=== PATIENT | female | born 1975 | race Caucasian/White ===

== ENCOUNTER → 2020-01-06 14:31 | Outpatient (BNVA) | payer BC, SELFPAY | PROVIDERS: Family Provider Family Medicine; PCP Family Medicine; Visit Provider Obstetrics & Gynecology | DX: Z30.9 Encounter for contraceptive management, unspecified (principal); N93.9 Abnormal uterine and vaginal bleeding, unspecified | CPT/HCPCS: 81025 ==

== ENCOUNTER → 2020-04-17 09:32 | Outpatient (BNVA) | payer BC, SELFPAY | PROVIDERS: Family Provider Family Medicine; PCP Family Medicine; Visit Provider Family Medicine | DX: I10 Essential (primary) hypertension (principal); E66.9 Obesity, unspecified | CPT/HCPCS: 80053; 80061; 82043; 82306; 85025 ==

== ENCOUNTER → 2020-04-22 09:30 | Outpatient (BNVA) | payer BC, SELFPAY | PROVIDERS: Family Provider Family Medicine; PCP Family Medicine; Visit Provider Family Medicine | DX: R73.09 Other abnormal glucose (principal); R74.8 Abnormal levels of other serum enzymes; I10 Essential (primary) hypertension; E66.9 Obesity, unspecified | CPT/HCPCS: 80074; 83036 ==

== ENCOUNTER → 2020-05-20 15:33 | Outpatient (BNVA) | payer BC, SELFPAY | PROVIDERS: Family Provider Family Medicine; PCP Family Medicine; Visit Provider Family Medicine | DX: R59.0 Localized enlarged lymph nodes (principal) | CPT/HCPCS: 85007; 85027; 86618; 86666; 86757 ==

== ENCOUNTER → 2020-05-21 17:13 | Outpatient (BNVA) | payer BC, SELFPAY | PROVIDERS: Family Provider Family Medicine; PCP Family Medicine; Visit Provider Family Medicine | DX: R59.0 Localized enlarged lymph nodes (principal) | CPT/HCPCS: 80500 ==

== ENCOUNTER 2020-06-01 14:35 | Outpatient (CLI) | payer BC, SELFPAY ==
--- NOTE | 2020-06-01 15:15 | US_ITS ---
WS: [id number] US soft tissue head neck [id number] REASON FOR EXAM: left cervical adenopathy FINDINGS: In the region of the palpable abnormality, ultrasonographic examination revealed a complex mass havin g both solid and cystic complements. There were markedly thickened septations in the cystic areas. Th e mass measured 1.98 x 1.58 x 2.10 cm. US/US soft tissue head neck [id number] IMPRESSION: The palpable mass in the left neck is a complex abnormality that is not typical for isolated adenopathy. Possibly this is a complex tumor in the left parotid gland. A CT scan of the neck with contrast is recommended making certain to sta rt just above the base of the skull superiorly.
== END 2020-06-01 14:36 | disposition home or self-care (01) ==
LOC: US 14:38
PROVIDERS: PCP Family Medicine; Visit Provider Family Medicine
DX: R59.0 Localized enlarged lymph nodes (principal)
CPT/HCPCS: 76536

== ENCOUNTER 2020-06-03 07:50 | Outpatient (CLI) | payer BC, SELFPAY ==
--- NOTE | 2020-06-03 08:03 | CT_ITS ---
WS: [id number] CT NECK WITH CONTRAST HISTORY: Abnormal ultrasound. Complex mass. TECHNIQUE: Contiguous 5 mm axial images are performed through the neck with intravenous contrast. Sag ittal and coronal reformats are also submitted. All CT scans at [facility] use at least o ne of these dose optimization techniques: automated exposure control; mA and/or kV adjustment per pat ient size (includes targeted exams where dose is matched to clinical indication); or iterative recons truction. CONTRAST: CONTRAST: Omnipaque 300; 95 mL IV. DLP: 2437.21 mGycm COMPARISON: Ultrasound 06/01/2020. Nasopharynx, oropharynx, hypopharynx and larynx are unremarkable. No soft tissue masses or abnormal e nhancement. Torus tubarius and fossa of Rosenmuller and parapharyngeal fat are normal. Cervical chain lymphadenopathy is identified. Enlarged lymph nodes at level IIa and IIb measuring up to 10 mm in short axis diameter. Level Va lymph node measures 9 mm. There is an additional lymph node measuring 10 mm lateral to the sternocleidomastoid muscle on the LEFT. Well-circumscribed hypervascular mass in the inferior LEFT parotid measures 15 x 11 mm. There are adj acent smaller enhancing nodes which may be lymph nodes in the LEFT parotid gland. Adjacent to the kiran y superior superficial LEFT parotid is a 6 mm enhancing enhancing nodule which may be within the paro tid gland or extraparotid lymph node. RIGHT parotid gland is normal. Negative thyroid. No osseous abnormalities. Visualized portions of the skull base demonstrate no abnormalities. Orbits and globes are within norm al limits. No soft tissue masses. Visualized paranasal sinuses and mastoid air cells are normal. Lung apices are clear. CT/CT neck w con* [id number] IMPRESSION: 1. LEFT parotid gland dominant mass measures 15 x 11 mm. Adjacent small intrap arotid masses may be lymph nodes. Suspicious for malignancy. 2. Cervical chain lymphadenopathy as described above. 3. Neoplastic disease with extension to the lymph nodes these to be excluded. Recommend consultation with ENT and possible fine-needle aspiration of the LEFT parotid gland dominant mass or removal of an abnormal lymph node.
[2020-06-03] MEDS: iohexol 300 mg/mL 100 mL Btl IV (08:30)
== END 2020-06-03 07:51 | disposition home or self-care (01) ==
LOC: RADWPI 07:52
PROVIDERS: PCP Family Medicine; Visit Provider Family Medicine
DX: R93.89 Abnormal findings on diagnostic imaging of other specified body structures (principal); D37.030 Neoplasm of uncertain behavior of the parotid salivary glands; R59.0 Localized enlarged lymph nodes
CPT/HCPCS: 70491; Q9967

== ENCOUNTER → 2020-06-08 09:17 | Outpatient (BNVA) | payer BC, SELFPAY | PROVIDERS: PCP Family Medicine; Visit Provider Family Medicine | DX: R74.8 Abnormal levels of other serum enzymes (principal) | CPT/HCPCS: 80053 ==

== ENCOUNTER → 2020-06-26 09:59 | Outpatient (BNVA) | payer BC, SELFPAY | PROVIDERS: PCP Family Medicine; Visit Provider Specialist | DX: Z20.828 Contact with and (suspected) exposure to other viral communicable diseases (principal) | CPT/HCPCS: 87635 ==

== ENCOUNTER 2020-06-30 13:52 | Observation (INO) | payer BC, SELFPAY ==
[2020-06-29 10:30] VITALS: BMI 33.9
[2020-06-30] VITALS (11 sets, daily range): BP systolic 140–171; BP diastolic 75–112; PULSE 81–108; RESP 15–19; TEMP 37.1–37.2; O2SAT 95–100
[2020-06-30 07:46] LABS: OR HCG Qualitative Urine Negative (Negative)
[2020-06-30] MEDS: sodium chloride 0.9% 1,000 ML 30 ML IV (07:54)
--- NOTE | 2020-06-30 08:12 | P.ANESASSM_ITS ---
Pre-Anesthetic Assessment Pre-Anesthetic Assessment: Height/Weight: Height 1.68 m Weight 95.254 kg Temp Pulse Resp BP Pulse Ox 98.7 F 81 16 158/112 96 06/30/20 07:41 06/30/20 07:41 06/30/20 07:41 06/30/20 07:41 06/30/20 07:41 Preop Diagnosis: lymphadenopathy Proposed Procedure: Operation Date: 06/30/20 07:00 Proposed Procedures p Parotidectomy(Left) - Perez Fulton MD Familial anesthetic complications: None Was Beta Soni taken within 24 hours: N/A Last intake: Intake Last Liquid Date 06/30/20 Last Liquid Time 04:30 Last Solid Date 06/29/20 Last Solid Time 19:00 Social: Social History: No alcohol and No tobacco Exam: Pre-Anes Outpt Exam: alert, oriented x 3, clear to auscultation bilaterally and regular rate & rhythm Airway: Cervical ROM: WNL MP: 2 Dentition: Full CV/HEM: CV/HEM: HTN GI: GI: GERD Metabolic: Metabolic: Hyperlipidemia and Morbid obesity Anesthetic Plan: ASA status: 2 Anesthesia: General Risk of > 500 ml blood loss (7ml/kg in children): No Meds/Allergies Current Medications: Current Medications Generic Name Dose Route Start Last Admin Trade Name Freq PRN Reason Stop Dose Admin Sodium Chloride 1,000 mls @ 30 ml s/hr 06/30/20 07:30 06/30/20 07:54 Sodium Chloride 0.9% IV 07/01/20 07:29 30 mls/hr .Q24H DAMARIS Administration PFSH Anesthesia PFSH: Medical History (Updated 05/20/20 @ 15:19 by Ana Lilia Pal DO) Chronic migraine Controlled on sumatriptan when necessary. Denies Aura. This is managed by her primary care provider Dr. López Hypertension No pertinent past medical history Patient denies history of PE/DVT/clotting disorders, asthma, lung, liver heart, thyroid, kidney disease, or diabetes. PCP: Dr. López Surgical History S/P section Performed in 2007. Status post hysteroscopy 05/23/2019-- hysteroscopy, dilation and curettage performed for abnormal uterine [place] [facility] [place] Pathology showed disordered proliferation and secretory menstrual fragments. On hysteroscopy no lesions submucosal fibroids or polyps identified within the endocervical and endometrial cavity. 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 Data Anesthesia Other Labs: Laboratory Results - last 48 hr 06/30/20 07:33 Urine HCG, Qual Negative Cardiac Studies: No Data to Display
--- NOTE | 2020-06-30 08:34 | ANES.PREANE2 ---
Pre-Anesthetic Assessment Pre-Anesthetic Assessment: Height/Weight: Height 1.68 m Weight 95.254 kg Temp Pulse Resp BP Pulse Ox 98.7 F 81 16 158/112 96 06/30/20 07:41 06/30/20 07:41 06/30/20 07:41 06/30/20 07:41 06/30/20 07:41 Preop Diagnosis: lymphadenopathy Proposed Procedure: Operation Date: 06/30/20 07:00 Proposed Procedures p Parotidectomy(Left) - Perez Fulton MD Last intake: Intake Last Liquid Date 06/30/20 Last Liquid Time 04:30 Last Solid Date 06/29/20 Last Solid Time 19:00 Meds/Allergies Current Medications: Current Medications Generic Name Dose Route Start Last Admin Trade Name Freq PRN Reason Stop Dose Admin Sodium Chloride 1,000 mls @ 30 ml s/hr 06/30/20 07:30 06/30/20 07:54 Sodium Chloride 0.9% IV 07/01/20 07:29 30 mls/hr .Q24H DAMARIS Administration PFSH Anesthesia PFSH: Medical History (Updated 05/20/20 @ 15:19 by Ana Lilia Pal DO) Chronic migraine Controlled on sumatriptan when necessary. Denies Aura. This is managed by her primary care provider Dr. López Hypertension No pertinent past medical history Patient denies history of PE/DVT/clotting disorders, asthma, lung, liver heart, thyroid, kidney disease, or diabetes. PCP: Dr. López Surgical History S/P section Performed in 2007. Status post hysteroscopy 05/23/2019-- hysteroscopy, dilation and curettage performed for abnormal uterine bleeding by Dr. Reddy at [facility] [place]. Pathology showed disordered proliferation and secretory menstrual fragments. On hysteroscopy no lesions submucosal fibroids or polyps identified within the endocervical and endometrial cavity. 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 Data Anesthesia Other Labs: Laboratory Results - last 48 hr 06/30/20 07:33 Urine HCG, Qual Negative Cardiac Studies: No Data to Display
--- NOTE | 2020-06-30 09:01 | W.PM.OPSUD ---
Surgery/Procedure H&P Update DATE OF PROCEDURE: June 30, 2020 DATE H&P PERFORMED: 06/19/20 H&P UPDATE INFORMATION: I have reviewed H&P completed within last 30 days, I have examined patient prior to procedure and No changes to prior documentation PREOP DIAGNOSIS: Left Parotid Mass PRIMARY INDICATION FOR PROCEDURE: Left Parotid Mass PLANNED PROCEDURE: Operation Date: 06/30/20 07:00 Proposed Procedures p Parotidectomy(Left) - Perez Fulton MD
[2020-06-30] MEDS: ceFAZolin 1,000 mg SDV 1000 MG IRRIGATION ×2 (10:09→14:40)
[2020-06-30] MEDS: EPINEPHrine 1 mg/mL INJ 2 MG XX ×2 (10:10→11:08)
[2020-06-30] MEDS: fluorescein 1 mg Strip 2 MG XX (10:15)
[2020-06-30] MEDS: thrombin 5,000 unit SDV 5000 UNIT XX ×2 (12:22→14:40)
--- NOTE | 2020-06-30 12:27 | SUR.OPER ---
Family Notified Of Patient's Status Via Phone.
[2020-06-30] MEDS: neomycin-poly-bacitracin oint 28 gm 1 APPLIC TOPICAL (13:07)
--- NOTE | 2020-06-30 14:09 | PC.NURSE ---
Spoke with patient's Rodney and gave update that she had swelling and we were re-opening to look for bleeding.
--- NOTE | 2020-06-30 15:18 | P.OP_ITS ---
Operative Report Date of procedure: June 30, 2020 Pre-op Diagnosis: Left Parotid Mass Post-op diagnosis: same Post-op Findings: Left tail of paroitd mass with benign frozen section analysis Procedure Done: Left superficial parotidectomy Left abdominal fat graft harvest Implants: None Specimens removed/disposition: Left superficial parotid gland/mass Pathology: other Pathology: Left superficial parotid/tail of parotid mass Surgeon: Perez Fulton Yeast Fermentation Attendant: Demian Fitzpatrick Anesthesia: General Estimated blood loss (mL): 25 IV fluids (mL): 2,300 Complications: Wound hemorrhange/hematoma at the end of the procedure Findings: Left tail of parotid mass/normal left facial nerve Condition: stable Disposition: ICU Brief History: The patient is a 44 yo wf with a h/o a left tail of parotid mass who desires surgical therapy. Procedure: The patient was identified in the preoperative holding area and was taken to the operating room where she was placed on the operating table in the supine position. Anesthesia was obtained with general endotracheal anesthesia and the table was turned 180 degrees. The Nirvana nerve monitoring system was placed on the patient's left face and a modified Eddie incision was marked out on patient's left face. The wound was injected with local anesthesia and the patient was then prepped and draped in the usual sterile fashion. The incision was made with a 15 blade and was carried down into the subcutaneous tissues using sharp scissors. An anteriorly based skin flap was raised exposing the left parotid fascia and then the dissection proceeded along a broad front from the upper sternocleidomastoid to the preauricular tissues. Using the Nirvana nerve monitoring hemostat the dissection proceeded at its deepest point in the preauricular portion of the wound exposing the tympanomastoid suture line. The dissection proceeded into the tympanomastoid suture line until the facial nerve trunk was identified. The dissection then proceeded anteriorly with the Thompson dissector until the pes anserinus was identified. At this point the facial nerve branches were dissected individually superiorly and inferiorly while dividing the parotid tissue with bipolar cautery until the tail of parotid was removed while protecting the marginal, buccal, temporal, and zygomatic branches of the facial nerve. The left tail of parotid specimen was removed and sent for frozen section analysis. This came back as negative for malignancy. At this point a left abdominal fat graft was harvested with a 15 blade and sharp scissors from the left lower quadrant of the abdomen. Hemostasis was achieved with bipolar cautery and a Corinth drain was placed in the wound. The left lower quadrant abdominal wound was then closed with interrupted 4-0 Monocryl sutures subcu and 3-0 Prolene on the skin. The left lower quadrant wound was then covered with a sterile dressing. The wound was inspected and hemostasis was achieved with bipolar cautery. The fat graft thus harvested was then placed in the surgical defect of the left parotid and was sutured in place with interrupted 4-0 Monocryl sutures. A small FAUSTO drain was placed in the wound and the wound was then closed interrupted 4-0 Monocryl sutures subcu in running fashion 5-0 fast-absorbing gut on the skin. At this point the wound was cleaned and covered triple antibiotic ointment and the procedure was terminated. The patient was extubated and was placed on the gurney and she was noted to have significant swelling of the left face. At this point we elected to place her back on the operating table and put her to sleep the table was then turned 180 degrees and the patient was reprepped and draped in the usual sterile fashion. The left facial wound was then opened and the wound was irrigated with a copious amount of normal of warm saline. The bleeding was found to be near the trunk of the facial nerve from a parotid remnant just outside of the stylomastoid foramen. FloSeal was then used to stop this bleeding and then Gelfoam covered with thrombin was placed in the area as was a new drain. The fat graft was then replaced and sutured in place with 4-0 Monocryl sutures and the wounds were reclosed with 4-0 Monocryl sutures in the subcu and a running 5-0 Prolene on the skin. Once this was accomplished, the procedure was terminated and control of the patient was returned to anesthesia where she underwent an uneventful reversal of anesthesia and extubation and was taken to the recovery room stable condition. There were no operative or anesthetic complications.
[2020-06-30] MEDS: lactated ringers 1,000 ML 100 ML IV (16:33)
[2020-06-30] MEDS: famotidine 20 mg/2 mL INJ IVP (16:37)
[2020-06-30] MEDS: morphine 4 mg/mL SDV 1 mL 2 MG IVP ×2 (16:38→19:20)
[2020-06-30] MEDS: docusate sodium 100 mg Capsule PO (19:24)
[2020-07-01] VITALS (30 sets, daily range): BP systolic 105–147; BP diastolic 7–100; PULSE 70–99; RESP 12–26; TEMP 36.7–37.3; O2SAT 95–99
[2020-07-01] MEDS: morphine 4 mg/mL SDV 1 mL 2 MG IVP ×2 (00:05→05:19)
[2020-07-01] MEDS: lactated ringers 1,000 ML 100 ML IV ×2 (01:37→15:02)
--- NOTE | 2020-07-01 05:16 | P.PN_ITS ---
Subjective Subjective: Interval history: 44 yo wf who is POD #1 s/p left superficial parotidectomy with abdominal fat graft harvest who is doing well. The patient has had limited po intake, and is getting her pain control IV. The patient reports that her face is working, and she can feel her left ear. She is o/w without c/o. Vitals/I&O/Wt Last Vital Signs Temp 98.8 F 07/01/20 03:36 Pulse 78 07/01/20 03:36 Resp 22 H 07/01/20 03:36 BP 118/7 07/01/20 03:36 Pulse Ox 95 06/30/20 20:15 06/30/20 06/30/20 07/01/20 14:59 22:59 06:59 Intake Total 1050 / 1050 2460 / 3510 906.667 / 4416.667 Output Total 1297 / 1297 1010 / 2307 Balance 1050 / 1050 1163 / 2213 -103.333 / 2109.667 Weight last 48 hrs Weight 95.254 kg Physical Exam Const: COMMON NORMALS: patient oriented x3 HENMT: COMMON NORMALS: external ears normal and Normal external nose present NOSE: Normal external nose present EXTERNAL EAR: Yes external ears normal Eye: COMMON NORMALS: EOMs intact bilaterally and conjunctivae normal CONJUNCTIVA: Yes conjunctivae normal Neck/C-Spine: COMMON NORMALS: full ROM and no lymphadenopathy GENERAL: Yes other (The left facial/neck wound is intact and without erythema or swelling.) Lymph: LYMPHATIC: no lymphadenopathy noted Resp: COMMON NORMALS: normal respiratory effort and clear to auscultation bilaterally AUSCULTATION: clear to auscultation bilaterally Cardio: COMMON NORMALS: regular rate, regular rhythm and No murmurs present (Cardio) RATE: regular rate RHYTHM: regular rhythm GI: COMMON NORMALS: Normal to inspection, nondistended, normoactive bowel sounds present INSPECTION: Yes normal to inspection Extremity: COMMON NORMALS: normal to inspection Neuro: COMMON NORMALS: patient oriented x3 and CN's II-XII intact bilaterally Skin: COMMON NORMALS: no rashes or lesions noted GENERAL SKIN EXAM: no rashes or lesions noted Urinary Catheter Management^: Castano: Cath Placed During This Visit: yes Urinary Catheter Date of Insertion: 06/30/20 Urinary Catheter Time of Insertion: 09:20 A&P Additional A&P Information Impression: 44 yo wf who is POD #1 s/p left superficial parotidectomy doing well. Plan: I recommend that we change to po Ibuprofen and Percocet for pain control; we will observe today and discharge this afternoon if the patient is able to control her pain po; we will continue closed suction drainage. Attestations Medical Necessity Statement*: The patient required overnight observation of her airway. Coding Level of Care Code Acute Drafter Electrical for Tanvi Nava
[2020-07-01] MEDS: oxyCODONE-APAP 5-325 mg Tablet PO ×2 (05:32→12:21)
[2020-07-01] MEDS: famotidine 20 mg/2 mL INJ IVP ×2 (05:33→17:16)
[2020-07-01] MEDS: atorvastatin 40 mg Tablet 20 MG PO (08:52)
[2020-07-01] MEDS: sertraline 50 mg Tablet PO (08:52)
[2020-07-01] MEDS: hydroCHLOROthiazide 25 mg Tablet PO (08:53)
[2020-07-01] MEDS: doxycycline 100 mg Tablet PO (08:53)
[2020-07-01] MEDS: docusate sodium 100 mg Capsule PO (08:53)
[2020-07-01] MEDS: ibuprofen 200 mg Tablet 400 MG PO ×2 (08:54→15:04)
--- NOTE | 2020-07-01 09:17 | ANE.PACU2 ---
Inpatient post-anesthesia follow up: Airway intact: Yes Vital signs: Temperature 98.1 F Pulse Rate 77 Respiratory Rate 17 Blood Pressure 113/65 Pulse Oximetry 95 Oxygen Delivery Me thod Room Air Oxygen Flow Rate 8 Fraction of Inspir ed Oxygen Hydration adequate: Yes Nausea and vomiting: No Pain level: 3 Mental status: Baseline
[2020-07-01] MEDS: SUMAtriptan 25 mg Tablet 100 MG PO (17:16)
--- NOTE | 2020-07-01 17:16 | P.PN_ITS ---
Subjective Subjective: Interval history: 44 yo wf who is POD #1 s/p left superficial parotidectomy. The patient reports that she has a migraine INFANTE, and would like to go home. The patient has been able to take po, and was instructed in drain use. She is o/w without c/o. Vitals/I&O/Wt Last Vital Signs Temp 98.1 F 07/01/20 09:00 Pulse 73 07/01/20 14:30 Resp 12 07/01/20 14:30 BP 105/69 07/01/20 14:30 Pulse Ox 96 07/01/20 14:30 07/01/20 07/01/20 07/01/20 06:59 14:59 22:59 Intake Total 906.667 / 4416.667 1000 / 1000 Output Total 1010 / 2307 Balance -103.333 / 2109.667 1000 / 1000 Physical Exam Const: COMMON NORMALS: no acute distress and patient oriented x3 ORIENTATION/CONSCIOUSNESS: Yes oriented to person HENMT: COMMON NORMALS: normocephalic and Normal external nose present HEAD & SCALP: normocephalic FACE & SINUS: normal facial exam NOSE: Normal external nose present Eye: COMMON NORMALS: EOMs intact bilaterally and no scleral icterus Neck/C-Spine: COMMON NORMALS: no lymphadenopathy THYROID: other (The left neck wound is clean, intact, and without erythema.) Lymph: LYMPHATIC: no lymphadenopathy noted Chest: COMMONS NORMALS: normal inspection of the chest Resp: COMMON NORMALS: normal respiratory effort and clear to auscultation bilaterally AUSCULTATION: clear to auscultation bilaterally Cardio: COMMON NORMALS: regular rhythm and No murmurs present (Cardio) RHYTHM: regular rhythm GI: COMMON NORMALS: Normal to inspection, nondistended, normoactive bowel sounds present Extremity: COMMON NORMALS: normal to inspection Neuro: COMMON NORMALS: patient oriented x3 and CN's II-XII intact bilaterally SENSORIUM/ORIENTATION: Yes oriented to person Psych: COMMON NORMALS: mental status grossly normal Skin: COMMON NORMALS: turgor normal GENERAL SKIN EXAM: turgor normal Urinary Catheter Management^: Castano: Cath Placed During This Visit: yes Urinary Catheter Date of Insertion: 06/30/20 Urinary Catheter Time of Insertion: 09:20 A&P Additional A&P Information Impression: 44 yo wf with a h/o a left parotid mass who is POD #1 s/p left superficial parotidectomy who is doing well Plan: D/C to home; Percocet (5/325) tabs: take 1-2 tabs po [id number] prn pain, #25, NR; Doxycycline (100mg) tabs: take 1 tab po BID x 14 days, #28, NR; Sumatryptan (100mg tab): take one tab po QD prn INFANTE, #2 tabs, NR; the patient is to empty her FAUSTO drain daily and record output; VIOLA to wounds TID; the patient was instructed in wound care and drain care; the patient is to f/u in Dr. Fulton's office in 5 days - she is to contact me for any problems. Attestations Medical Necessity Statement*: The patient required overnight observation of her airway and for pain control. Coding Level of Care Code Acute Place Change Roof Bolter for Tanvi Nava
[2020-07-08 09:46] LABS: Miscellaneous Test See Scanned Lab Rpt
== END 2020-07-02 06:13 | disposition home or self-care (01) ==
LOC: MEDSURG 13:53 → ICU 15:04
PROVIDERS: Admitting Provider Specialist; PCP Family Medicine; Visit Provider Specialist
PROC: (CPT 42410; principal; 2020-06-30 07:00)
PROC: (CPT 42415; 2020-06-30 07:00)
DX: D11.0 Benign neoplasm of parotid gland (principal); I10 Essential (primary) hypertension
CPT/HCPCS: 42415; 12345; 81025; 84703; 88307; 94664; 96360; 96361; 96375; G0378; J0171; J0330; J0690; J1100; J2270; J2405; J2704; J3010; J3490; J7030

== ENCOUNTER → 2020-07-20 11:11 | Outpatient (BNVA) | payer BC, SELFPAY | PROVIDERS: PCP Family Medicine; Visit Provider Family Medicine | DX: E78.5 Hyperlipidemia, unspecified (principal) | CPT/HCPCS: 80061; 83721 ==

== ENCOUNTER → 2020-07-27 11:58 | Outpatient (BNVA) | payer BC, SELFPAY | PROVIDERS: PCP Family Medicine; Visit Provider Family Medicine | DX: K11.8 Other diseases of salivary glands (principal); I10 Essential (primary) hypertension | CPT/HCPCS: 71046; 86140 ==

== ENCOUNTER → 2021-01-04 08:31 | Outpatient (BNVA) | payer BC, SELFPAY | PROVIDERS: PCP Family Medicine; Visit Provider Family Medicine | DX: I10 Essential (primary) hypertension (principal); E78.5 Hyperlipidemia, unspecified; F41.1 Generalized anxiety disorder; G43.709 Chronic migraine without aura, not intractable, without status migrainosus; Z68.34 Body mass index [BMI] 34.0-34.9, adult | CPT/HCPCS: 80053; 81015; 82043; 85025 ==

== ENCOUNTER 2021-03-08 09:26 | Outpatient (CLI) | payer BC, SELFPAY ==
--- NOTE | 2021-03-08 09:30 | MM_ITS ---
WS: [id number] BILATERAL SCREENING DIGITAL MAMMOGRAM WITH CAD HISTORY: Screening. COMPARISON: 08/24/2017 Bilateral CC and MLO views submitted. Computer aided detection analyzed. Breast composition: The breasts are heterogeneously dense, which may obscure small masses. No suspici ous masses, microcalcifications or architectural distortion. Scattered asymmetries have become slight ly less dense as compared to the prior study. No new calcifications. No distortion. MM/[id number] IMPRESSION: BI-RADS: 2-Benign FOLLOW UP: 1 Year Follow-up
== END 2021-03-08 09:27 | disposition home or self-care (01) ==
LOC: RADSHAW 09:29
PROVIDERS: PCP Family Medicine; Visit Provider Obstetrics & Gynecology
DX: Z12.31 Encounter for screening mammogram for malignant neoplasm of breast (principal)
CPT/HCPCS: 77067

== ENCOUNTER → 2021-07-05 08:40 | Outpatient (BNVA) | payer BC, SELFPAY | PROVIDERS: PCP Family Medicine; Visit Provider Family Medicine | DX: I10 Essential (primary) hypertension (principal); F41.1 Generalized anxiety disorder; E78.5 Hyperlipidemia, unspecified; G43.709 Chronic migraine without aura, not intractable, without status migrainosus | CPT/HCPCS: 80053; 80061; 82043; 85025 ==

== ENCOUNTER → 2021-12-28 08:58 | Outpatient (BNVA) | payer BC, SELFPAY | PROVIDERS: PCP Family Medicine; Visit Provider Family Medicine | DX: E78.5 Hyperlipidemia, unspecified (principal); I10 Essential (primary) hypertension | CPT/HCPCS: 80053 ==

== ENCOUNTER → 2022-08-02 11:17 | Outpatient (BNVA) | payer BC, SELFPAY | PROVIDERS: PCP Family Medicine; Visit Provider Family Medicine | DX: I10 Essential (primary) hypertension (principal); E78.5 Hyperlipidemia, unspecified | CPT/HCPCS: 80053; 80061; 82043; 85025 ==

== ENCOUNTER 2022-12-05 14:43 | Outpatient (CLI) | payer BC, SELFPAY ==
[2022-12-05 15:55] LABS: Basophils # 0.1 10^3/uL (0.0-0.1); Basophils % 0.7 %; Eosinophils # 0.2 10^3/uL (0.0-0.8); Eosinophils % 2.4 %; Hematocrit 45.7 % (37.0-47.0); Hemoglobin 15.4 g/dL (11.5-15.3); Lymphocytes # 3.2 10^3/uL (0.8-4.8); Lymphocytes % 35.6 %; Mean Corpuscular HGB Conc 33.7 g/dL (30.0-36.0); Mean Corpuscular Hemoglobin 30.9 pg (28.0-34.0); Mean Corpuscular Volume 91.8 fl (81-99); Mean Platelet Volume 9.5 fL (7.4-10.4); Monocytes # 0.7 10^3/uL (0.2-0.9); Monocytes % 7.4 %; Neutrophils # 4.77 10^3/uL (1.8-7.7); Neutrophils % 53.5 %; Nucleated Red Blood Cells % 0 %; Platelet Count 307 10^3/cmm (130-400); Red Blood Count 4.98 10^6/uL (4.1-5.3); Red Cell Distribution Width 13.1 % (12.1-15.1); White Blood Count 8.9 10^3/uL (4.0-10.0)
[2022-12-05 16:24] LABS: Alanine Aminotransferase 50 U/L (0-33); Albumin Level 4.6 g/dL (3.5-5.2); Alkaline Phosphatase 81 U/L (35-105); Anion Gap 17.9 (5-19); Aspartate Amino Transferase 32 U/L (0-32); Blood Urea Nitrogen 16 mg/dL (6-20); Calcium 9.6 mg/dL (8.5-10.5); Carbon Dioxide 22 mmol/L (22-29); Chloride 102 mmol/L (98-107); Glomerular Filtration Rate 77.2 mL/min (90-130); Glucose 101 mg/dL (65-115); Osmolality Calculated 289 mOsm/kg (285-295); Sodium 139 mmol/L (136-145); Total Bilirubin 0.7 mg/dL (0.15-1.2); Total Protein 7.6 g/dL (6.6-8.7)
[2022-12-05 16:41] LABS: Hepatitis A Antibody IgM Non-Reactive (Nonreactive); Hepatitis B Core AB, Total Non-Reactive (Nonreactive); Hepatitis B Surface AB 3.5 (11.5-1000); Hepatitis B Surface Antigen Non-Reactive (Nonreactive); Hepatitis C Virus Antibody Non-Reactive (Nonreactive)
[2022-12-05 17:25] LABS: Potassium 2.9 mmol/L (3.5-5.1)
[2022-12-05 20:10] LABS: HIV 1 & 2 Antibody Non-Reactive (Non-Reactiv); HIV 1 & 2 Antigen Non-Reactive (Non-Reactiv)
[2022-12-07 12:39] LABS: Quantiferon Mitogen >10.00 IU/mL; Quantiferon Nil 0.04 IU/mL; Quantiferon TB Gold NEGATIVE (NEGATIVE)
== END 2022-12-05 14:44 | disposition home or self-care (01) ==
PROVIDERS: PCP Family Medicine; Visit Provider Nurse Practitioner Family
DX: L40.0 Psoriasis vulgaris (principal)
CPT/HCPCS: 36415; 80053; 85025; 86480; 86705; 86706; 86709; 86803; 87340; 87806

== ENCOUNTER 2022-12-20 15:56 | Outpatient (CLI) | payer BC, SELFPAY ==
[2022-12-20 17:12] LABS: Anion Gap 16.3 (5-19); Blood Urea Nitrogen 17 mg/dL (6-20); Calcium 9.8 mg/dL (8.5-10.5); Carbon Dioxide 23 mmol/L (22-29); Chloride 102 mmol/L (98-107); Glomerular Filtration Rate 107.6 mL/min (90-130); Glucose 106 mg/dL (65-115); Magnesium 1.9 mg/dL (1.7-2.3); Osmolality Calculated 288 mOsm/kg (285-295); Potassium 3.3 mmol/L (3.5-5.1); Sodium 138 mmol/L (136-145)
== END 2022-12-20 15:57 | disposition home or self-care (01) ==
LOC: LAB 16:01
PROVIDERS: PCP Family Medicine; Visit Provider Family Medicine
DX: I10 Essential (primary) hypertension (principal)
CPT/HCPCS: 36415; 80048; 83735

== ENCOUNTER → 2023-01-31 11:17 | Outpatient (BNVA) | payer BC, SELFPAY | PROVIDERS: PCP Family Medicine; Visit Provider Family Medicine | DX: E87.6 Hypokalemia (principal); G43.709 Chronic migraine without aura, not intractable, without status migrainosus; G43.909 Migraine, unspecified, not intractable, without status migrainosus; E78.5 Hyperlipidemia, unspecified; F41.1 Generalized anxiety disorder | CPT/HCPCS: 80048 ==

== ENCOUNTER → 2023-03-14 11:50 | Outpatient (BNVA) | payer BC, SELFPAY | PROVIDERS: PCP Family Medicine; Visit Provider Family Medicine | DX: Z00.00 Encounter for general adult medical examination without abnormal findings (principal); Z01.419 Encounter for gynecological examination (general) (routine) without abnormal findings; E87.6 Hypokalemia | CPT/HCPCS: 80048; 87624 ==

== ENCOUNTER 2023-03-23 09:10 | Outpatient (CLI) | payer BC, SELFPAY ==
--- NOTE | 2023-03-23 09:23 | MM_ITS ---
WS: [id number] BILATERAL SCREENING DIGITAL TOMOSYNTHESIS MAMMOGRAM WITH CAD HISTORY: screening mammogram COMPARISON: 03/08/2021 and 08/24/2017 Bilateral CC and MLO views with tomosynthesis and synthetic mammography submitted. Computer aided det ection analyzed. Breast composition: The breasts are heterogeneously dense, which may obscure small masses. No suspici ous masses, microcalcifications or architectural distortion. Scattered asymmetries are stable. MM/[id number] IMPRESSION: BI-RADS: 2-Benign FOLLOW UP: 1 Year Follow-up
== END 2023-03-23 09:11 | disposition home or self-care (01) ==
LOC: RAD 09:17 → MOBLMAM 09:22
PROVIDERS: PCP Family Medicine; Visit Provider Family Medicine
DX: Z12.31 Encounter for screening mammogram for malignant neoplasm of breast (principal)
CPT/HCPCS: 77063; 77067

== ENCOUNTER → 2023-09-21 08:59 | Outpatient (BNVA) | payer BC, SELFPAY | PROVIDERS: PCP Family Medicine; Visit Provider Family Medicine | DX: E78.5 Hyperlipidemia, unspecified (principal); F41.1 Generalized anxiety disorder; G43.709 Chronic migraine without aura, not intractable, without status migrainosus | CPT/HCPCS: 80053; 80061 ==

== ENCOUNTER 2023-11-29 15:57 | Outpatient (CLI) | payer BC, SELFPAY ==
[2023-12-01 18:23] LABS: Quantiferon Mitogen 8.46 IU/mL; Quantiferon Nil 0.09 IU/mL; Quantiferon Plus TB1 0.06 IU/mL; Quantiferon Plus TB2 0.03 IU/mL; Quantiferon TB Gold NEGATIVE (NEGATIVE)
== END 2023-11-29 15:58 | disposition home or self-care (01) ==
LOC: LAB 16:01
PROVIDERS: PCP Family Medicine; Visit Provider Nurse Practitioner Family
DX: Z01.89 Encounter for other specified special examinations (principal)
CPT/HCPCS: 36415; 86480

== ENCOUNTER → 2024-03-26 13:59 | Outpatient (BNVA) | payer BC, SELFPAY | PROVIDERS: PCP Family Medicine; Visit Provider Nurse Practitioner Family | DX: E78.5 Hyperlipidemia, unspecified (principal) | CPT/HCPCS: 80061; 83721 ==

== ENCOUNTER → 2024-09-19 16:04 | Outpatient (BNVA) | payer BC, SELFPAY | PROVIDERS: PCP Family Medicine; Visit Provider Family Medicine | DX: Z00.00 Encounter for general adult medical examination without abnormal findings (principal) | CPT/HCPCS: 80053; 80061; 84443; 85025 ==

== ENCOUNTER 2024-11-12 15:39 | Outpatient (CLI) | payer BC, SELFPAY | END 2024-11-12 15:40 | disposition home or self-care (01) | LOC: LAB 15:41 | PROVIDERS: PCP Family Medicine; Visit Provider Nurse Practitioner Family | DX: L40.0 Psoriasis vulgaris (principal) | CPT/HCPCS: 36415; 86480 ==

== ENCOUNTER 2025-03-17 11:03 | Outpatient (CLI) | payer BC, SELFPAY ==
--- NOTE | 2025-03-17 11:20 | MM_ITS ---
WS: [id number] BILATERAL SCREENING DIGITAL TOMOSYNTHESIS MAMMOGRAM WITH CAD HISTORY: screening COMPARISON: 03/23/2023, 03/08/2021, 08/24/2017 Bilateral CC and MLO views with tomosynthesis and synthetic mammography submitted. Computer aided detection analyzed. Breast composition: The breasts are heterogeneously dense, which may obscure small masses. No suspicious masses, microcalcifications or architectural distortion. Scattered asymmetries bilaterally but greatest in the LEFT breast. After reviewing multiple prior studies these asymmetries have been present since 2017. No suspicious grouping of calcifications. MM/MM scr tomosynthesis [id number] IMPRESSION: BI-RADS: 2 - Benign FOLLOW UP: 1 Year Follow-up
== END 2025-03-17 11:04 | disposition home or self-care (01) ==
LOC: RAD 11:05
PROVIDERS: PCP Family Medicine; Visit Provider Family Medicine
DX: Z12.31 Encounter for screening mammogram for malignant neoplasm of breast (principal); R92.333 Mammographic heterogeneous density, bilateral breasts; N64.89 Other specified disorders of breast
CPT/HCPCS: 77063; 77067